=== PATIENT | male | born 1970 | race Caucasian/White ===

== ENCOUNTER → 2020-06-06 20:59 | Outpatient (CLI) | payer SELFPAY ==
[2020-06-06 18:09] VITALS: BMI 31.4
[2020-06-06 21:06] LABS: Hematocrit 46.6 % (40-54); Hemoglobin 15.3 g/dL (13.0-16.5); Mean Corp Hgb Conc 32.8 g/dL (32-36); Mean Corpuscular Hgb 32.1 pg (27.0-32.0); Mean Corpuscular Volume 97.7 fL (80-94); Mean Platelet Vol. 9.8 fl (6.2-12.0); Platelet Count 278 K/mm3 (150-450); RBC Distribution Width CV 13.2 % (11.6-14.6); RBC Distribution Width SD 46.8 fl (35.1-43.9); Red Blood Count 4.77 M/mm3 (4.6-6.2); White Blood Count 5.3 K/mm3 (4.4-11.0)
[2020-06-06 21:30] LABS: PSA,Total- Diagnostic 0.44 ng/mL (0.0-4.0)
== END ==
PROVIDERS: Referring Provider Nurse Practitioner; Visit Provider Nurse Practitioner
DX: R79.89 Other specified abnormal findings of blood chemistry (principal)
CPT/HCPCS: 84153; 84403; 85027